=== PATIENT | female | born 1990 | race Two or more races ===

== ENCOUNTER 2021-02-13 17:43 | Emergency (ER) | payer OTHER ==
[~2021-02-13] VITALS: Ht 163.8 cm; Wt 97.5 kg
--- NOTE | 2021-02-13 17:50 | NUR ---
library attendant: EKG done in triage
--- NOTE | 2021-02-13 17:59 | NUR ---
ASSUMED CARE OF PT. PT REPORTS CHEST PAIN/SOB STARTING AT 1999 LAST NIGHT. PT STATES "MY CHEST ONLY HURTS WHEN I BREATHE." PLACED ON MONITORS, IN A GOWN CALL LIGHT W /IN REACH.
[2021-02-13] MEDS ORDERED: KETOROLAC 60 MG/2 ML ONE (18:39)
[2021-02-13 18:41] VITALS: BP 125/84
--- NOTE | 2021-02-13 18:44 | NUR ---
PT MEDICATED PER MAR, LABS DRAWN. NADN,CALL LIGHT W/IN REACH
--- NOTE | 2021-02-13 18:59 | NUR ---
SBAR REPORT GIVEN TO PEDRO
[2021-02-13] MEDS ORDERED: KETOROLAC 30 MG/1 ML IM ONE (19:00)
--- NOTE | 2021-02-13 19:02 | NUR ---
Report from Nesha ARCHULETA
[2021-02-13 19:03] LABS: TROPONIN I < 0.015 ng/mL (0.000-0.045)
--- NOTE | 2021-02-13 19:08 | NUR ---
Registration at bedside with pt
== END 2021-02-13 20:13 | disposition home or self-care (01) ==
LOC: ED 19:08
DX: M79.18 Myalgia, other site (principal); R94.31 Abnormal electrocardiogram [ECG] [EKG]; J45.909 Unspecified asthma, uncomplicated
CPT/HCPCS: 36415; 71045; 84484; 85379; 93005; 96372; 99285; J1885